=== PATIENT | male | born 1940 | race Caucasian/White ===

== ENCOUNTER 2019-01-23 15:54 | Observation (INO) | payer MEDICARE, BC ==
[~2019-01-23] VITALS: Ht 165.1 cm; Wt 63.4 kg
--- NOTE | ~2019-01-23 | HEMODYNAMI ---
PATIENT:MELLISSA URIARTE SR MEDICAL RECORD: [id number] : 36 LOCATION:[facility] D.2125 ADMISSION DATE: 01/23/19 Generatedon:01/24/201916:21 Patient name: MELLISSA URIARTE Patient #: [id number] SSN: : 1 10/28/1939 Date of study: 01/24/2019 Page: Of Hemodynamic Procedure Report Patient Data Patient Demographics Procedure consent was obtained First Name: MELLISSA Gender: Male Last Name: CHAPITO Suffix: [facility] Initial: CHRISTIE : 1940 Patient #: [id number] Age: 78 year(s) Race: Unknown Additional ID: [id number] Contact details Address: [address] [place] [address] State: [place] City: [facility] Zip code: [address] Past Medical History Allergies: No known allergies Admission Admission Data Admission Date: 01/23/2019 Admission Time: 18:59 Room #: D.2125 Height (in.): 64.96 BSA: 1.71 (m2) Height (cm.): 165 BMI: 23.69 (kg/m2) Weight (lbs.): 142.2 Weight (kg.): 64.5 Lab Results Lab Result Date: 01/24/2019 Lab Result Time: 0:00 Biochemistry Name Units Result Min Max BUN mg/dl 16 --(---*)-- 7 18 Creatinine mg/dl 1.1 --(--*-)-- 0.6 1.3 CBC Name Units Result Min Max Hemoglobin g/dl 15.8 --(--*-)-- 13.5 17.5 Procedure Procedure Types Cath Procedure Diagnostic Procedure C [facility] w/Coronaries Sedation Charges Moderate Sedation up to 15 minutes PCI Procedure Coronary Stent Coronary Stent Initial Procedure Description Procedure Date Procedure Date: 01/24/2019 Procedure Start Time: 15:49 Procedure End Time: 16:20 Procedure Staff Name Function Adarsh Lyle MD Performing Physician Cyndi Sen RT Monitor Delonte Lund RN Nurse Edwin Nunez RT Scrub Procedure Data Cath Procedure Fluoroscopy Diagnostic fluoroscopy Total fluoroscopy Time: time: 10.2 min 10.2 min Diagnostic fluoroscopy Total fluoroscopy dose: dose: 1004 mGy 1004 mGy Contrast Material Contrast Material Type Amount (ml) Isovue 300 147 Entry Location Entry Primary Successful Side Size Upsize Upsize Entry Closure Succes sful Closure Location (Fr) 1 (Fr) 2 (Fr) Remarks Device Remarks Femoral Right 5 Fr Exoseal artery Estimated blood loss: 10 ml Diagnostic catheters Device Type Used For End Catheter Placement MULTIPACK 3DRC 5Fr Procedure catheter MULTIPACK JL 4.0 5Fr Procedure catheter MULTIPACK Pigtail 5 Fr Procedure catheter DIAGNOSTIC JL 5 5Fr Procedure catheter ([id number]) Procedure Complications No complications Procedure Medications Medication Administration Route Dosage 0.9% NaCl I.V. 100 ml/hr Oxygen etCO2 Nasal cannula 2 l/min Heparin Flush Bag added to field 2 bags (1000units/500ml NS) Lidocaine 2% added to field 20 Cardizem 10 mg/hr (125mg/125ml NS) Benadryl I.V. 50 mg Versed I.V. 0.5 mg Fentanyl I.V. 25 mcg Heparin Bolus I.V. 5000 units Integrilin (Bolus I.V. 5.6 ml 2mg/ml) Integrilin (Bolus wasted 4.4 ml 2mg/ml) Versed I.V. 0.5 mg Plavix P.O. 600 mg Hemodynamics Rest BSA: 1.71 (m2) HGB: 15.8 (g/dl) O2 Consumption: Estimated: 196.67 (ml/min) O2 Co nsumption indexed: Estimated:115.01 (ml/min/m) Heart Rate: 72 (bpm) Pressure Samples Time Site Value (mmHg) Purpose Heart Use Rate(bpm) 15:59 LV 151/14,19 Snapshot 75 Gradients Valve Time Site Site Mean SEP/DFP Peak To Heart Use 1 2 (mmHg) (sec/min) Peak Rate (mmHg) (bpm) Aortic 16:00 LV AO 72 Snapshots Pre Cath Intra NCS Post Cath Vital Signs Time Heart Resp SPO2 etCO2 NIBP (mmHg) Rhythm Pain Sedation Rate (ipm) (%) (mmHg) Status Level (bpm) 15:36:29 80 20 95 17.2 143/74(112) A-Fib 0 (11) 10(A) , No pain 15:41:17 72 24 95 20.2 139/88(112) A-Fib 0 (11) 10(A) , No pain 15:45:32 73 22 94 14.9 140/74(119) A-Fib 0 (11) 10(A) , No pain 15:49:48 68 22 94 17.2 136/72(110) A-Fib 0 (11) 10(A) , No pain 15:54:02 69 22 95 18.7 137/72(107) A-Fib 0 (11) 10(A) , No pain 15:58:18 71 21 95 18.7 147/71(111) A-Fib 0 (11) 10(A) , No pain 16:02:40 67 23 96 18.7 138/61(109) A-Fib 0 (11) 10(A) , No pain 16:06:56 72 19 96 20.2 140/66(117) A-Fib 0 (11) 10(A) , No pain 16:11:12 79 19 95 22.4 139/67(101) A-Fib 0 (11) 10(A) , No pain 16:15:28 69 21 94 22.4 131/69(115) A-Fib 0 (11) 10(A) , No pain 16:19:38 80 20 95 21.7 145/77(116) A-Fib 0 (11) 10(A) , No pain Medications Time Medication Route Dose Verified Delivered Reason Notes Effectiveness by by 15:37:33 0.9% NaCl I.V. 100 Delonte Per physician ml/hr Ashely LEVI 15:37:43 Oxygen etCO2 Nasal 2 Delonte for low 02 sats cannula l/min Ashely LEVI 15:37:56 Heparin Flush added to 2 Delonte used for Bag field bags Ashely procedure (1000units/500ml RN NS) 15:38:10 Lidocaine 2% added to 20ml Delonte for local field vial Ashely anesthetic RN 15:38:57 Cardizem I.V. 10 Delonte Delonte for arrhythmia (125mg/125ml NS) drip(infusing mg/hr Ashely Lund upon arrival RN RN 15:40:14 Benadryl I.V. 50 mg Delonte Delonte Per physician Ashely Lund RN RN 15:51:56 Versed I.V. 0.5 Delonte Delonte for sedation mg Ashely Lund RN RN 15:52:05 Fentanyl I.V. 25 Delonte Delonte for sedation mcg Ashely Lund RN RN 16:08:02 Heparin Bolus I.V. 5000 Delonte Delonte for units Ashely Lund anticoagulation RN RN 16:08:16 Integrilin I.V. 5.6 Delonte Delonte for (Bolus 2mg/ml) ml Ashely Lund antiplatelet RN RN therapy 16:08:27 Integrilin wasted 4.4 Delonte Delonte to sharp's (Bolus 2mg/ml) ml Ashely Lund RN RN 16:09:44 Versed I.V. 0.5 Delonte Delonte for sedation mg Ashely Lund RN, RN 16:20:12 Plavix P.O. 600 Delonte Delonte for mg Ashely Lund antiplatelet RN RN therapy Procedure Log Time Note 14:53:55 Patient Weight : 142.2 lbs 14:54:06 Patient Height : 64.96 inches 14:54:47 Lab Result : Hemoglobin 15.8 g/dl 14:54:47 Lab Result : Creatinine 1.1 mg/dl 14:54:47 Lab Result : BUN 16 mg/dl 14:55:14 Diagnostic Cath status Elective 14:55:16 Delonte Lund RN sent for patient. Start room use. 14:55:17 Time tracking: Regular hours (M-F 7:00 - 5:00) 14:55:22 Plan of Care:Hemodynamics will remain stable., Cardiac rhythm will remain stable., Comfort level will be maintained., Respiratory function will remain adequate., Patient/ family verbilizes understanding of procedure., Procedure tolerated without complication., Recovers from procedure without complications.. 14:55:29 Patient received from Med II to CCL 2 Alert and oriented. Tansferred to table in Supine position. 14:55:30 Warm blankets applied, and jason hugger turned on for patient comfort. 14:55:31 Correct patient and procedure confirmed by team. 14:55:33 Signed procedure consent form obtained from patient. 14:55:48 H&P Date Dictated: 01/24/2019 Within 30 days and on chart., H&P Addendum completed by physician on day of procedure. (MUST COMPLETE FOR ALL OUTPATIENTS). 14:55:50 Pre-procedure instructions explained to patient. 15:33:04 Family in waiting room. 15:33:05 Patient NPO since Midnight. 15:33:12 Patient allergic to No known allergies 15:33:15 Is the patient allergic to Iodine/contrast media? No. 15:33:21 Was the patient premedicated? Yes 15:33:22 Is patient on blood thinner?Yes 15:33:28 ACC The patient was administered the following blood thiners within the last 24 hours: ACCPradaxa 15:33:30 Patient diabetic? No. 15:33:35 Snore? No 15:33:37 Sleep apnea? No 15:33:45 Dentures? Yes in tight 15:35:19 ECG and BP/O2 sat monitors applied to patient. 15:35:19 Vital chart was started 15:35:45 Baseline sample Acquired. 15:35:57 Rhythm: sinus rhythm 15:36:19 Full Disclosure recording started 15:36:24 Pre-op teaching completed and patient verbalized understanding. 15:37:33 0.9% NaCl 100 ml/hr I.V. was administered by Delonte Lund RN; Per physician; 15:37:43 Oxygen 2 l/min etCO2 Nasal cannula was administered by Delonte Lund RN; for low 02 sats; 15:37:56 Heparin Flush Bag (1000units/500ml NS) 2 bags added to field was administered by Delonte Lund RN; used for procedure; 15:38:07 Pre procedure: right dorsailis pedis pulse 1+ Palpable, but thready & weak; easily obliterated 15:38:10 Lidocaine 2% 20ml vial added to field was administered by Delonte Lund RN; for local anesthetic; 15:38:25 Patient pain scale 0/10 morphine givin on floor. 15:38:33 IV patent on arrival in right forearm with 0.9% NaCl at [facility]. 15:38:37 Lab results completed and on chart. 15:38:41 Right groin area was prepped with chlora-prep and draped in sterile fashion 15:38:42 Alarms reviewed by R. N. 15:38:43 Sharps counted by scrub and verified by R.N. 15:38:44 Physician [facility]:38[facility] 10 mg/hr I.V. drip(infusing upon arrival was administered by Delonte Lund RN; for arrhythmia; 15:40:14 Benadryl 50 mg I.V. was administered by Delonte Lund RN; Per physician; 15:40:57 Baseline sample Acquired. 15:41:05 Rhythm: atrial fibrillation 15:47:38 Use device set Femoral Dx 15:47:40 ACIST Syringe (97026) opened to sterile field. 15:47:40 Bag Decanter (2002S) opened to sterile field. 15:47:40 Medline Cath Pack ([id number]) opened to sterile field. 15:47:41 DIAGNOSTIC WIRE .035 260cm J wire (892452) opened to sterile field. 15:47:42 ACIST Hand Control (24428) opened to sterile field. 15:47:43 ACIST Manifold (84943) opened to sterile field. 15:47:44 DIAGNOSTIC Multipack 5Fr catheter set (HT5876) opened to sterile field. 15:47:45 Tegaderm 4 x 4 (1626W) opened to sterile field. 15:47:47 SHEATH 5FR [place] (YQI571) opened to sterile field. 15:47:57 --------ALL STOP TIME OUT------ 15:47:58 Final Timeout: patient, procedure, and site verified with staff and physician. All members of the team are in agreement. 15:48:00 Right groin site verified by team. 15:48:06 Fire Safety Assessment: A--An alcohol-based skin anteseptic being used preoperatively., C--Open oxygen or nitrous oxide is being used., D--An ESU, laser, or fiber-optic light is being used. 15:48:13 Sedation plan: IV Moderate Sedation Medication:Versed, Fentanyl 15:49:05 Procedure started. 15:49:14 Local anesthetic to right femoral artery with Lidocaine 2% by Adarsh Lyle MD.INITIAL ACCESS ONLY 15:49:23 A 5 Fr sheath was inserted into the Right Femoral artery 15:51:56 Versed 0.5 mg I.V. was administered by Delonte Lund RN; for sedation; 15:52:05 Fentanyl 25 mcg I.V. was administered by Delonte Lund RN; for sedation; 15:55:11 A MULTIPACK 3DRC 5Fr catheter was advanced over the wire and used for Procedure. 15:55:13 RCA angiography performed. 15:55:49 Catheter removed. 15:57:03 A MULTIPACK JL 4.0 5Fr catheter was advanced over the wire and used for Procedure. 15:59:54 Catheter removed. 16:00:02 A MULTIPACK Pigtail 5 Fr catheter was advanced over the wire and used for Procedure. 16:00:13 LV gram done using GUERRERO 16:00:19 EF : 55 % 16:00:24 Catheter removed. 16:01:40 A DIAGNOSTIC JL 5 5Fr catheter ([id number]) was advanced over the wire and used for Procedure. 16:03:05 LCA angiography performed. 16:03:08 Catheter removed. 16:04:51 WHISPER 300cm guide wire ([id number]) opened to sterile field. 16:04:52 INFLATOR Merit BasixCompak (RX8642) opened to sterile field. 16:04:53 SHEATH 6FR [place] (SDB954) opened to sterile field. 16:04:55 GUIDE 6FR AR 1.0 catheter ([id number]) opened to sterile field. 16:06:22 Proceeding to intervention. 16:06:47 6 Fr AR1 guide catheter was inserted over the wire 16:06:53 Whisper wire advanced. 16:08:02 Heparin Bolus 5000 units I.V. was administered by Delonte Lund RN; for anticoagulation; 16:08:16 Integrilin (Bolus 2mg/ml) 5.6 ml I.V. was administered by Delonte Lund RN; for antiplatelet therapy; 16:08:27 Integrilin (Bolus 2mg/ml) 4.4 ml wasted was administered by Delonte Lund RN; to sharp's; 16:09:22 Wire advanced across lesion. 16:09:44 Versed 0.5 mg I.V. was administered by Delonte Lund RN; for sedation; 16:09:56 Inflate balloon Inflation number: 1 A EMERGE OTW 3.0 x 15 balloon ([id number]) was prepped and advanced across the Mid RCA, then inflated to 10 JEFF for 0:10 (min:sec). 16:10:17 Inflation number: 2 The EMERGE OTW 3.0 x 15 balloon ([id number]) was reinflated across the Mid RCA, to 10 JEFF for 0:12 (min:sec). 16:10:52 Inflation number: 3 The EMERGE OTW 3.0 x 15 balloon ([id number]) was reinflated across the Mid RCA, to 10 JEFF for 0:23 (min:sec). 16:12:00 Inflation number: 4 The EMERGE OTW 3.0 x 15 balloon ([id number]) was reinflated across the Mid RCA, to 10 JEFF for 0:17 (min:sec). 16:12:42 Balloon removed over the wire. 16:16:28 Place stent Inflation Number: 1 A COBRA RX 3.5 X 24 Stent was prepped and advanced across the Mid RCA1. The stent was deployed at 14 JEFF for 0:24 (min:sec). 16:17:20 Sheath removed intact; hemostasis achieved with Exoseal to the Right Femoral artery. 16:17:33 EXOSEAL 6Fr (EX600) opened to sterile field. 16:17:48 Procedure ended.(Physican Out) 16:18:13 Fluoroscopy time 10.20 minutes. 16:18:19 Fluoroscopy dose: 1004 mGy 16:18:19 Flurop Dose total: 1004 16:18:52 Contrast amount:Isovue 300 147ml. 16:18:59 Sharps counted by scrub and verified by R.N. 16:19:02 Insertion/operative site no bleeding no hematoma. 16:19:10 Post-op/insertion site Right Femoral artery dressed using a 4 x 4 and Tegaderm. 16:19:13 Post Procedure Pulses reassessed and unchanged 16:19:18 Post-procedure physical assessment completed. ASA score P 2 - A patient with mild systemic disease as per Adarsh Lyle MD. 16:19:26 Post procedure rhythm: atrial fibrillation 16:19:30 Estimated blood loss: 10 ml 16:19:31 Post procedure instruction explained to patient.Patient verbalizes understanding. 16:19:54 Procedure type changed to Cath procedure, Diagnostic procedure, LHC, LHC w/Coronaries, Sedation Charges, Moderate Sedation up to 15 minutes, PCI procedure, Coronary Stent, Coronary Stent Initial 16:19:56 Procedure and supply charges have been captured, reviewed, submitted and are correct. 16:20:12 Plavix 600 mg P.O. was administered by Delonte Lund RN; for antiplatelet therapy; 16:20:17 Procedure Complication : No complications 16:20:36 Vital chart was stopped 16:20:37 See physician's report for complete and final results. 16:20:40 Report given to [facility]. 16:20:43 Patient transfered to [facility] with Bed. 16:20:45 Procedure ended. 16:20:45 Full Disclosure recording stopped 16:20:59 End room use (Document Last) Intervention Summary Intervention Notes Time ActionType Lesion and Equipment Action# Pressure Duration Attributes Used 16:09:56 Inflate Mid RCA EMERGE OTW 1 10 00:10 balloon 3.0 x 15 balloon ([id number]) 16:10:17 Reinflate Mid RCA EMERGE OTW 2 10 00:12 balloon 3.0 x 15 balloon ([id number]) 16:10:52 Reinflate Mid RCA EMERGE OTW 3 10 00:23 balloon 3.0 x 15 balloon ([id number]) 16:12:00 Reinflate Mid RCA EMERGE OTW 4 10 00:17 balloon 3.0 x 15 balloon ([id number]) 16:16:28 Place stent Mid RCA1 COBRA RX 3.5 1 14 00:24 X 24 Stent Device Usage Item Name Manufacture Quantity Catalog Number [facility] Lot# / Charge Number Stock Stock Serial# Code ACIST Syringe Acist 1 26426 888929 410162 043507 20 (89671) Medical Systems Inc Bag Decanter Microtek 1 2001S 446065 10808 260490 5 () Medical Inc. Medline Cath Medline 1 [id number] 292337 07714 806310 5 Pack ([id number]) DIAGNOSTIC St Misha 1 953740 955883 056984 106981 30 WIRE .035 260cm J wire (830164) ACIST Hand Acist 1 65365 838291 055773 460793 5 Control Medical (60095) Systems Inc ACIST Manifold Acist 1 51192 877883 512052 094935 5 (37235) Medical Systems Inc DIAGNOSTIC Cardinal 1 WI6258 476594 10499 969050 30 Multipack 5Fr Health catheter set (KR3269) Tegaderm 4 x 4 3M 1 1626W 049470 128693 256720 5 (1626W) SHEATH 5FR Terumo 1 PTH615 028936 960413 068786 5 [place] (MMS745) MULTIPACK 3DRC Cardinal 1 912822 5 5Fr catheter Health MULTIPACK JL Cardinal 1 590927 5 4.0 5Fr Health catheter MULTIPACK Cardinal 1 403639 5 Pigtail 5 Fr Health catheter DIAGNOSTIC JL Cardinal 1 [id number] 198882 679307 250941 5 5 5Fr catheter Health (184989E) WHISPER 300cm [place] 1 [id number] 465138 089739 825081 5 guide wire Vascular ([id number]) INFLATOR Merit Merit 1 ZA1156 068839 110443 940537 15 [employer] (ZJ5368) SHEATH 6FR Terumo 1 HNM398 748232 595661 125678 40 [place] (TDY892) GUIDE 6FR AR Medtronic 1 [id number] 312324 40504 688088 1 1.0 catheter (KR4FS81) EMERGE OTW 3.0 [employer] 1 [id number] 599061 128628 679055 5 11945210 x 15 balloon Scientific ([id number]) COBRA RX 3.5 X Celonova 1 150-99-01286 058899 544397734 989377 8 4 [id number] 24 stent Biosciences ([id number]) EXOSEAL 6Fr Cardinal 1 EX600 859137 419093 378556 10 (EX600) Health Signature Audit [place] Stage Time Signature Unsigned Intra-Procedure 01/24/2019 Cyndi Sen 4:21:18 PM RT(R) Signatures Monitor : Cyndi Sen Signature : RT Date : Time : [facility] [address] [address]
[2019-01-23] MEDS ORDERED: BP (16:02)
[2019-01-23] MEDS ORDERED: PRADAXA150 MG PO (16:02)
[2019-01-23 16:28] LABS: BASOPHILS 0.1 % (0-2); EOSINOPHILS 0 % (0-7); HEMATOCRIT 46.3 % (42.0-54.0); HEMOGLOBIN 15.8 g/dL (13.5-17.5); IMMATURE GRANULOCYTES 0.3 % (0-5); LYMPHOCYTES 5.2 % (15-50); MCH 31.9 pg (26.0-34.0); MCHC 34.1 g/dL (31.0-37.0); MCV 93.3 fL (80.0-100.0); MEAN PLATELET VOLUME 9.4 fL (7.4-10.4); MONOCYTES 12.3 % (2-11); NEUTROPHILS 82.1 % (40-80); PLATELET COUNT 349 10x3/uL (130-400); RBC 4.96 10x6/uL (4.20-6.10); RDW 12.8 % (11.5-14.5); WBC 17.4 10x3/uL (4.8-10.8)
[2019-01-23 16:34] LABS: APTT 52.4 SECONDS (22.8-39.4); INR 1.4 (0.85-1.17); PROTIME 16.6 SECONDS (11.6-15.0)
[2019-01-23 16:40] LABS: ALKALINE PHOSPHATASE 64 U/L (46-116); ALT (SGPT) 41 U/L (10-68); BILIRUBIN - TOTAL 2.68 mg/dL (0.2-1.3); CALC OSMOLALITY 271 mosm/kg (275-300); CALCIUM 9.3 mg/dL (8.5-10.1); CARBON DIOXIDE 24.7 mmol/L (21.0-32.0); CHLORIDE - SERUM 101 mmol/L (98-107); CREATININE - SERUM 1.1 mg/dL (0.6-1.3); GLUCOSE 116 mg/dL (74-106); POTASSIUM - SERUM 4.3 mmol/L (3.5-5.1); PROTEIN - SERUM 7.5 g/dL (6.4-8.2); SODIUM 135 mmol/L (136-145); UREA NITROGEN 16 mg/dL (7-18); eGFR NON AFRICAN AMERICAN 68 mL/min (90-120)
[2019-01-23 16:51] LABS: CKMB 1.7 U/L (0.0-3.6); CREATINE KINASE 65 UL (21-232); MAGNESIUM - SERUM 1.7 mg/dL (1.8-2.4); TROPONIN-I < 0.017 ng/mL (0.000-0.060)
[2019-01-23 17:28] VITALS: BP 145/81
[2019-01-23 18:26] VITALS: BP 154/78
[2019-01-23 18:45] VITALS: BP 146/74
[2019-01-23 19:26] LABS: CKMB 1.3 U/L (0.0-3.6); CREATINE KINASE 54 UL (21-232)
[2019-01-23 19:28] LABS: TROPONIN-I < 0.017 ng/mL (0.000-0.060)
--- NOTE | 2019-01-23 19:45 | NUR ---
NO ACUTE DISTRESS NOTED. V/S STABLE AT PRESENT. DENIES ANY NEEDS
[2019-01-23] MEDS ORDERED: LIPITOR10 MG PO (20:43)
[2019-01-23] MEDS ORDERED: LOPRESSOR25 MG PO (20:44)
--- NOTE | 2019-01-23 20:46 | NUR ---
PT ARRIVED TO ROOM 2124 PT IS AAO, 2L O2 NC. CARDIZEM INFUSING ORDERED TO RIGHT AC 20G PIV, PLACED TELEMETRY ON AND ALERTED FLY FRAME TENDER TO CARDIZEM GTT. PT MEDREC,PHARM AND HISTORY COMPLETE. 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 PT DENIES ANY NEEDS. NO S/S OF DISTRESS. BEDLOW AND CALL LIGHT IN REACH. PT WILL CALL FOR ASSIST WHEN NEEDED. WILL CPOC
--- NOTE | 2019-01-23 23:44 | NUR ---
PT VERBALIZED UNDERSTANDING, NPO AFTER MIDNIGHT FOR CARDIO CONSULT. PT HAS NO S/S OF DISTRESS. CARDIZEM INFUSING AT 10 ORDERED. CONTROLLED A FIB 80 PT WILL CALL FOR ASSIST WHEN NEEDED. WILL CPOC
[2019-01-23 23:48] VITALS: BP 125/71
[2019-01-23 23:53] VITALS: BP 143/72; BMI 24.0
--- NOTE | 2019-01-24 00:20 | NUR ---
PT ASLEEP, AROUSES TO NURSE IN ROOM. DRINK REMOVED FROM BEDSIDE. PT HAS NO S/S OF DISTRESS. DENIES ANY NEEDS. PT WILL CALL FOR ASSIST WHEN NEEDED. VERBALIZED UNDERSTANDING OF NPO UNTIL SEEN BY CARDIO. WILL CPOC
[2019-01-24 02:03] LABS: CKMB 0.8 U/L (0.0-3.6); CREATINE KINASE 38 UL (21-232); TROPONIN-I < 0.017 ng/mL (0.000-0.060)
[2019-01-24 05:20] VITALS: BP 108/58
--- NOTE | 2019-01-24 07:10 | NUR ---
REPORT RECIEVED FROM LICENSING WORKER AND PATIENT CARE ASSUMED. PATIENT LAYING IN BED AWAKE, ALERT AND ORIENTED X 4. DTR AT BEDSIDE. PATIENT IS STABLE AND VSS. PATIENT DENIES ANY NEEDS OR PAIN. WILL CONTINUE WITH PLAN OF CARE. SR UP X 2 BED IN LOW POSITION AND CALL LIGHT IN REACH.
[2019-01-24 07:29] LABS: HEMATOCRIT 41.2 % (42.0-54.0); HEMOGLOBIN 14.3 g/dL (13.5-17.5); MCH 31.9 pg (26.0-34.0); MCHC 34.7 g/dL (31.0-37.0); MEAN PLATELET VOLUME 9.3 fL (7.4-10.4); PLATELET COUNT 305 10x3/uL (130-400); RBC 4.48 10x6/uL (4.20-6.10); RDW 13.1 % (11.5-14.5)
[2019-01-24 07:32] LABS: WBC 9.5 10x3/uL (4.8-10.8)
[2019-01-24 08:00] VITALS: BP 120/51
[2019-01-24 08:03] LABS: ALBUMIN 3.2 g/dL (3.4-5.0); ALKALINE PHOSPHATASE 55 U/L (46-116); BILIRUBIN - TOTAL 3.97 mg/dL (0.2-1.3); CALC OSMOLALITY 276 mosm/kg (275-300); CALCIUM 8.6 mg/dL (8.5-10.1); CHLORIDE - SERUM 102 mmol/L (98-107); CKMB 0.3 U/L (0.0-3.6); CREATINE KINASE 30 UL (21-232); GLUCOSE 101 mg/dL (74-106); POTASSIUM - SERUM 4.1 mmol/L (3.5-5.1); PROTEIN - SERUM 6.4 g/dL (6.4-8.2); SODIUM 138 mmol/L (136-145); UREA NITROGEN 14 mg/dL (7-18); eGFR NON AFRICAN AMERICAN 76 mL/min (90-120)
[2019-01-24 08:07] LABS: ALT (SGPT) 23 U/L (10-68); TROPONIN-I < 0.017 ng/mL (0.000-0.060)
[2019-01-24 08:41] LABS: LYMPHOCYTES 20 % (15-50); MONOCYTES 23 % (2-11); NEUTROPHILS 55 % (40-80); PLATELET ESTIMATE NORMAL
[2019-01-24 08:42] LABS: ROULEAUX OCC
[2019-01-24 09:42] VITALS: Ht 165.1 cm; Wt 63.4 kg
[2019-01-24 12:38] VITALS: BP 109/44
--- NOTE | 2019-01-24 13:25 | NUR ---
PATIENT RESTING COMFORTABLY IN BED. DTR AT BEDSIDE. WILL CONTINUE TO MONITOR.
--- NOTE | 2019-01-24 15:00 | NUR ---
PATIENT IS STABLE AND VSS. PATIENT TO CREDIT OR LOANS OFFICER VIA HOSPITAL BED AND CREDIT OR LOANS OFFICER TEAM.DTRS IN ROOM.
[2019-01-24 16:30] VITALS: BP 168/75
--- NOTE | 2019-01-24 16:45 | NUR ---
PATIENT RETURNED FROM COPPING MACHINE OPERATOR VIA HOSPITAL BED AND COPPING MACHINE OPERATOR TEAM. PATIENT IS STABLE AND VSS.PATIENT FLAT ON BACK WITH CAREN LEGS STRAIGHT. DRSG TO RT GROIN C/D/I. NO BLEEDING, BRUISING, OR HEMATOMA NOTED. PATIENT IS SLEEPING BUT AROUSES TO VOICE EASILY. DTRS AT BEDSIDE. WILL CONTINUE TO MONITOR.
--- NOTE | 2019-01-24 19:10 | NUR ---
PT RESTING IN BED. AAO, DENIES ANY PAIN. RIGHT GROIN CDI. PULSES +2 NO HEMATOMA OR BLEEDING NOTED. PT URINATED 150ML OF URINE. SPILT A SMALL AMOUNT. CLEANED PT UP. PT HAS NO S/S OF DISTRESS. DENIES ANY NEEDS. PT WILL CALL FOR ASSIST WHEN NEEDED. NAME AND DATE PLACED ON BOARD. WILL CPOC
[2019-01-24 20:00] VITALS: BP 145/70
--- NOTE | 2019-01-24 22:59 | NUR ---
PT RESTING IN BED. 150 EMPTIED FROM URINAL. PT RIGHT GROIN CDI, NO HEMATOMA OR BLEEDING NOTED. PULSES +2 PT DENIES ANY NEEDS. NO S/S OF DISTRESS. PT WILL CALL FOR ASSIST WHEN NEEDED. WILL CPOC
[2019-01-25] VITALS: BP 147/68
--- NOTE | 2019-01-25 02:00 | NUR ---
PT ASLEEP. RESP EVEN AND UNLABORED. 2L O2 NC. NO S/S OF DISTRESS. BEDLOW AND CALL LIGHT IN REACH. WILL CPOC
[2019-01-25 04:00] VITALS: BP 105/73
--- NOTE | 2019-01-25 04:51 | NUR ---
PT ASLEEP. RESP EVEN AND UNLABORED. PT AROUSED TO VERBAL STIMULI. DENIES ANY NEEDS. NO S/S OF DISTRESS. RIGHT GROIN CDI. NO CHANGE. NS INFUSING ORDERED. CARDIZEM INFUSING ORDERED. WILL CPOC
[2019-01-25 07:13] LABS: BASOPHILS 0.1 % (0-2); EOSINOPHILS 0 % (0-7); HEMATOCRIT 41.9 % (42.0-54.0); HEMOGLOBIN 14.3 g/dL (13.5-17.5); IMMATURE GRANULOCYTES 0.3 % (0-5); LYMPHOCYTES 12.9 % (15-50); MCH 31.8 pg (26.0-34.0); MCHC 34.1 g/dL (31.0-37.0); MCV 93.3 fL (80.0-100.0); MEAN PLATELET VOLUME 9.6 fL (7.4-10.4); MONOCYTES 21.5 % (2-11); NEUTROPHILS 65.2 % (40-80); PLATELET COUNT 322 10x3/uL (130-400); RBC 4.49 10x6/uL (4.20-6.10); RDW 13.3 % (11.5-14.5); WBC 9.7 10x3/uL (4.8-10.8)
--- NOTE | 2019-01-25 07:32 | NUR ---
ASSESSMENT DONE. DENIES NEEDS.
[2019-01-25 07:36] VITALS: BP 108/66
[2019-01-25 07:41] LABS: CALC OSMOLALITY 277 mosm/kg (275-300); CALCIUM 8.6 mg/dL (8.5-10.1); CARBON DIOXIDE 22.3 mmol/L (21.0-32.0); CHLORIDE - SERUM 104 mmol/L (98-107); CREATININE - SERUM 0.8 mg/dL (0.6-1.3); GLUCOSE 91 mg/dL (74-106); MAGNESIUM - SERUM 1.9 mg/dL (1.8-2.4); SODIUM 139 mmol/L (136-145); UREA NITROGEN 12 mg/dL (7-18); eGFR NON AFRICAN AMERICAN > 90 mL/min (90-120)
[2019-01-25 08:03] LABS: POTASSIUM - SERUM 3.4 mmol/L (3.5-5.1)
--- NOTE | 2019-01-25 09:54 | NUR ---
I have reviewed this patient and I concur with the Shift Assessment completed by the Licensed Practical Nurse today this shift.
[2019-01-25 11:24] VITALS: BP 117/52
[2019-01-25 12:18] LABS: APPEARANCE CLEAR (CLEAR); BILIRUBIN NEGATIVE (NEGATIVE); COLOR DK YELLOW (YELLOW); GLUCOSE NEGATIVE (NEGATIVE); KETONE LARGE mg/dL (NEGATIVE); NITRITE NEGATIVE (NEGATIVE); PROTEIN NEGATIVE (NEGATIVE); SPECIFIC GRAVITY 1.015 (1.005-1.020); UROBILINOGEN NORMAL (NORMAL)
[2019-01-25 12:19] LABS: BACTERIA FEW /hpf (NONE SEEN); EPITHELIAL CELLS 0-5 /hpf (0-5); MUCUS <1+ /lpf (NONE SEEN); RED CELLS - URINE OCC /hpf (0-5); WHITE CELLS - URINE OCC /hpf (0-5)
[2019-01-25 15:39] VITALS: BP 137/53
[2019-01-25] MEDS ORDERED: PLAVIX75 MG PO (16:04)
--- NOTE | 2019-01-25 16:42 | NUR ---
DC GIVEN TO PT
--- NOTE | 2019-01-25 16:51 | NUR ---
DC HOME PER PERSONAL CAR
--- NOTE | 2019-01-28 09:23 | MORECARE ---
CASE MANAGEMENT DISCHARGE SUMMARY PATIENT: MELLISSA URIARTE UNIT: [id number] ADM DATE: 01/23/19 AGE: 78 : 36 SEX: M ROOM/BED: D.7961 AUTHOR: USHA RODRIGUEZ PHYSICIAN: REFERRING PHYSICIAN: MELLISSA ESCALONA MD DATE OF SERVICE: 01/28/19 Discharge Plan Patient Name: MELLISSA URIARTE [facility] 1940 Planned Disposition: Home Anticipated Discharge Date: 01/25/19 Discharge Date: 01/25/2019 Expected LOS: 2 Initial Reviewer: [email or web address] Initial Review Date: 01/28/2019 Generated: 01/28/19 10:23 am Patient Name: MELLISSA URIARTE Page [id number] at 0923 All edits/amendments must be made on the electronic document DICTATION DATE: 01/28/19921 HOUSE MOVER HELPER: MANOLO 01/28/19921 RPT#: [id number] DC DATE:01/25/19 STATUS: DIS IN [facility] [address] [place] [address] END OF REPORT
--- NOTE | 2019-01-28 10:06 | CN ---
PATIENT NAME:MELLISSA URIARTE MEDICAL RECORD: [id number] : 36 LOCATION:D. D.2125 ADMIT DATE: 01/23/19 ACCOUNT: [id number] CONSULTING PHYSICIAN: AIDEE COOMBS MD REFERRING PHYSICIAN: MELLISSA ESCALONA MD DATE OF CONSULTATION: 01/24/2019 HISTORY OF PRESENT ILLNESS: An 78-year-old gentleman with no known history of coronary artery disease, has a history of atrial fibrillation, chronic in nature on Coumadin and on Pradaxa for CVA prophylaxis has a history of hypertension and dyslipidemia, presented with chest tightness and pressure. Blood pressure was somewhat elevated at that time. Her rates were below 100, was irregular certainly suspicious for angina. We are asked to see him concerning his cardiovascular status. PAST MEDICAL HISTORY: Includes: 1. History of hypertension. 2. Dyslipidemia. 3. Atrial fibrillation. ALLERGIES: None known. MEDICATIONS: Include Pradaxa 150 mg b.i.d., atorvastatin 10 every day, metoprolol 25 every day. SOCIAL HISTORY: He is a nonsmoker and nondrinker. Easily takes care of all his ADLs, stays quite active, gardening, etc. REVIEW OF SYSTEMS: The patient reports easy bruising but reports no swollen glands. The patient reports no fever, no night sweats, no significant weight gain, no significant weight loss. No significant exercise tolerance. The patient reports no dry eyes, no irritation, no vision change. Patient reports no difficulty hearing and no ear pain. Patient reports no frequent nose bleeds or nose and sinus problems. Patient reports on arm pain on exertion. No shortness of breath while lying down. No history of heart murmur. Patient reports no cough, no wheezing or coughing up blood. Patient reports no abdominal pain, no vomiting. Normal appetite. No diarrhea and not vomiting blood. No nausea and no constipation. Patient reports no incontinence. No difficulty urinating. No hematuria. No increased frequency. Patient reports no muscle aches. No weakness, no arthralgias, no back pain. No swelling of the extremities. Patient reports no abnormal mole, no jaundice, no rashes. Reports no loss of consciousness. No weakness and no numbness. No seizures, dizziness, or headaches. The patient reports no depression, no sleep disturbance, feeling safe in a relationship and no alcohol abuse. Patient reports on fatigue. Reports no runny nose or sinus pressure. No itching, no hives, and no frequent sneezing. PHYSICAL EXAMINATION: GENERAL: Pleasant gentleman in no acute distress, appears younger than stated age. VITAL SIGNS: Blood pressure 108/58, pulse 67 and regular. HEENT: Normocephalic, atraumatic. NECK: No bruits are noted. HEART: Irregular, rate is controlled. There is a II/ systolic ejection murmur. CONSULT REPORT [id number] MELLISSA URIARTE SR LUNGS: Good air excursion. ABDOMEN: Soft, nontender. EXTREMITIES: Pulses 2+. No edema. NEUROLOGIC: Grossly intact. DIAGNOSTIC DATA: ECG shows some ST-T changes inferolaterally, questionable right related. IMPRESSION: We will plan for angiography, intervention based on above. TRANSINT:[id number] Voice Confirmation ID: [id number] DOCUMENT ID: [id number] AIDEE COOMBS MD at 1006 CC: [id number] DICTATION DATE: 01/24/19845 DELIVERY LEAD: 01/24/19 1212 DIS IN 01/25/19 [facility] [address] [facility] [place] [place] [address]
--- NOTE | 2019-01-28 10:07 | OP ---
PATIENT NAME: MELLISSA URIARTE SR MEDICAL RECORD: [id number] :36 LOCATION:D.M2 D.2125 ADMISSION DATE:01/23/19 SURGEON: AIDEE COOMBS MD DATE OF OPERATION: 01/24/2019 PROCEDURE: Left heart catheterization, selective coronary angiography, right femoral artery approach. CATHETERS: A 5-[place] sheath, 5/4 Ashley, 5/4 pig. The procedure was well tolerated. The patient was returned to the thomas. Sheath was removed. ExoSeal device was placed. FINDINGS: Left ventriculography in 30-degree GUERRERO view; normal wall motion and normal systolic function. CORONARY ANATOMY: LEFT MAIN: Left main is free of disease. LAD: Free of disease. CIRCUMFLEX: Luminal irregularities. No flow obstructive disease. RIGHT CORONARY ARTERY: The culprit artery with a severe diffuse stenosis 90% at its worst portion. DESCRIPTION OF PROCEDURE: A 5-[place] sheath was exchanged for a 6-[place] sheath. AR guiding catheter provided excellent guide catheter support followed by a 300 cm Whisper wire. Pre-deployment balloon was a 3.0 x 15 mm [place], stent deployed was a 3.5 x 24 mm Cobra stent up to 14 atmospheres. Final angiography shows excellent resolution of 90% plus stenosis, no significant residual. MARCELLUS flow was 3 throughout the procedure. Sheath was closed with ExoSeal device. Plavix was loaded in the lab. TRANSINT:[id number] Voice Confirmation ID: [id number] DOCUMENT ID: [id number] AIDEE COOMBS MD at 1007 CC: [id number] DICTATION DATE: 01/24/19 1620 HEALTH EDUCATION AIDE: 01/24/19 1831 DIS IN 01/25/19 [facility] [address] [place] [place] [address]
== END 2019-01-25 16:52 | disposition home or self-care (01) ==
LOC: D.ER 15:54 → D.M2 18:59 → OBSVTIME 18:59 → D.M2 01-25 16:52
PROVIDERS: Family Medicine; ADMIT Emergency Medicine; ATTEND Emergency Medicine
DX: I25.119 Atherosclerotic heart disease of native coronary artery with unspecified angina pectoris (principal); I48.91 Unspecified atrial fibrillation; I10 Essential (primary) hypertension; E78.5 Hyperlipidemia, unspecified

== ENCOUNTER 2019-03-14 10:40 | Inpatient (IN) | payer MEDICARE, BC ==
[~2019-03-14] VITALS: Ht 165.1 cm; Wt 56.8 kg
[2019-03-14] VITALS (7 sets, daily range): BP systolic 101–158; BP diastolic 61–90; Ht 165.1 cm; Wt 56.8 kg
[~2019-03-14 10:40] MED LIST: BP; LIPITOR10 MG PO; LOPRESSOR25 MG PO; PLAVIX75 MG PO; PRADAXA150 MG PO
[2019-03-14 11:11] LABS: HEMATOCRIT 44.3 % (42.0-54.0); HEMOGLOBIN 15.5 g/dL (13.5-17.5); MCH 31.6 pg (26.0-34.0); MCV 90.4 fL (80.0-100.0); MEAN PLATELET VOLUME 9.4 fL (7.4-10.4); RDW 13.2 % (11.5-14.5); WBC 6.9 10x3/uL (4.8-10.8)
[2019-03-14 11:13] LABS: PLATELET COUNT 210 10x3/uL (130-400)
[2019-03-14 11:24] LABS: INR 1.25 (0.85-1.17); PROTIME 15.2 SECONDS (11.6-15.0)
[2019-03-14 11:25] LABS: ALBUMIN 3.4 g/dL (3.4-5.0); ALKALINE PHOSPHATASE 59 U/L (46-116); ALT (SGPT) 23 U/L (10-68); APTT 49.6 SECONDS (22.8-39.4); BILIRUBIN - TOTAL 2.54 mg/dL (0.2-1.3); CALC OSMOLALITY 271 mosm/kg (275-300); CALCIUM 9.2 mg/dL (8.5-10.1); CARBON DIOXIDE 24.2 mmol/L (21.0-32.0); CHLORIDE - SERUM 101 mmol/L (98-107); POTASSIUM - SERUM 3.9 mmol/L (3.5-5.1); PROTEIN - SERUM 6.8 g/dL (6.4-8.2); SODIUM 134 mmol/L (136-145); UREA NITROGEN 16 mg/dL (7-18); eGFR NON AFRICAN AMERICAN 76 mL/min (90-120)
[2019-03-14 11:26] LABS: GLUCOSE 149 mg/dL (74-106)
[2019-03-14 11:35] LABS: BASOPHILS 1 % (0-2); CKMB 0.8 U/L (0.0-3.6); CREATINE KINASE 47 UL (21-232); LYMPHOCYTES 17 % (15-50); MAGNESIUM - SERUM 1.8 mg/dL (1.8-2.4); MONOCYTES 16 % (2-11); NEUTROPHILS 61 % (40-80); PLATELET ESTIMATE NORMAL; TROPONIN-I < 0.017 ng/mL (0.000-0.060)
--- NOTE | 2019-03-14 14:30 | NUR ---
RECEIVED PT TO ROOM 2121 VIA W/C FROM ER AAOX4 RESP UNLABORED COLOSTOMY INTACT SKIN W/D COLOR WNL WILL CONTINUE TO MONITOR
--- NOTE | 2019-03-14 19:27 | NUR ---
AWAKE AND ALERT DENIES TINGLING AND CP SKIN IS WARM AND DRY IV TO LEFT AC PATENT I BEGIN BACKUP FLUID TO THE CARDZIEM AT THIS TIME BED IS LOW AND LOCKED AND SRX2 CALL LIGHT IS IN REACH
[2019-03-15] VITALS: BP 116/60
--- NOTE | 2019-03-15 01:44 | NUR ---
I have reviewed this patient and I concur with the Shift Assessment completed by the Licensed Practical Nurse today this shift.
[2019-03-15 04:00] VITALS: BP 122/66
[2019-03-15 05:42] LABS: BASOPHILS 0.3 % (0-2); EOSINOPHILS 0 % (0-7); HEMATOCRIT 40.9 % (42.0-54.0); IMMATURE GRANULOCYTES 0.3 % (0-5); LYMPHOCYTES 15.7 % (15-50); MCH 31.5 pg (26.0-34.0); MCHC 34.2 g/dL (31.0-37.0); MCV 91.9 fL (80.0-100.0); MEAN PLATELET VOLUME 9.5 fL (7.4-10.4); MONOCYTES 22.5 % (2-11); NEUTROPHILS 61.2 % (40-80); PLATELET COUNT 207 10x3/uL (130-400); RBC 4.45 10x6/uL (4.20-6.10); RDW 13.4 % (11.5-14.5)
[2019-03-15 05:46] LABS: WBC 9.2 10x3/uL (4.8-10.8)
[2019-03-15 06:11] LABS: ALKALINE PHOSPHATASE 50 U/L (46-116); ALT (SGPT) 22 U/L (10-68); CALC OSMOLALITY 267 mosm/kg (275-300); CALCIUM 8.8 mg/dL (8.5-10.1); CARBON DIOXIDE 25.4 mmol/L (21.0-32.0); CHLORIDE - SERUM 99 mmol/L (98-107); GLUCOSE 108 mg/dL (74-106); POTASSIUM - SERUM 4.3 mmol/L (3.5-5.1); SODIUM 133 mmol/L (136-145); UREA NITROGEN 16 mg/dL (7-18); eGFR NON AFRICAN AMERICAN 76 mL/min (90-120)
[2019-03-15 06:12] LABS: ALBUMIN 3.1 g/dL (3.4-5.0); BILIRUBIN - TOTAL 2.17 mg/dL (0.2-1.3); PROTEIN - SERUM 6.2 g/dL (6.4-8.2)
--- NOTE | 2019-03-15 07:33 | NUR ---
REPORT RECEIVED. WILL CONTINUE WITH POC. PT CURRENTLY LYING SEMI FOWLERS. CALL LIGHT W/I REACH. PT IS AAO AND UP AD [place]. RR EVEN AND UNLABORED ON RA. CARDIZEM RATE DECREASED TO 5ML/HR BY MIRACLE LEVICASTINGS TRIMMER NURSE R/T RATE BEING AT 55 CONTROLLED A-FIB. WILL NOTIFY CARDIOLOGY. NO S/S OF DISTRESS NOTED. PT DENIES ANY NEEDS AT THIS TIME. WILL CTM.
[2019-03-15 07:52] VITALS: BP 120/63
--- NOTE | 2019-03-15 09:16 | NUR ---
RECEIVED VERBAL ORDERS TO STOP SOTOLOL AND ADMINISTER 50MG METOPROLOL WAIT TWO HOURS AND STOP THE CARDIZEM DRIP. ORDERS PLACED. WILL CTM.
--- NOTE | 2019-03-15 11:25 | NUR ---
AAYUSH PÉREZIP STOPPED PER DR.ST MALLOY VERBAL ORDERS. WILL CTM.
[2019-03-15 12:01] VITALS: BP 120/61
[2019-03-15 13:23] LABS: APPEARANCE CLEAR (CLEAR); COLOR YELLOW (YELLOW); SPECIFIC GRAVITY 1.015 (1.005-1.020)
[2019-03-15 13:24] LABS: BACTERIA FEW /hpf (NONE SEEN); BILIRUBIN NEGATIVE (NEGATIVE); EPITHELIAL CELLS 0-5 /hpf (0-5); GLUCOSE NEGATIVE (NEGATIVE); KETONE SMALL mg/dL (NEGATIVE); NITRITE NEGATIVE (NEGATIVE); PROTEIN TRACE mg/dL (NEGATIVE); RED CELLS - URINE RARE /hpf (0-5); UROBILINOGEN NORMAL (NORMAL); WHITE CELLS - URINE OCC /hpf (0-5)
--- NOTE | 2019-03-15 14:33 | CN ---
PATIENT NAME:MELLISSA URIARTE MEDICAL RECORD: [id number] : 36 LOCATION:D. D.2122 ADMIT DATE: 03/14/19 ACCOUNT: [id number] CONSULTING PHYSICIAN: AIDEE COOMBS MD REFERRING PHYSICIAN: NEERAJ MORIN MD DATE OF CONSULTATION: 03/14/2019 HISTORY OF PRESENT ILLNESS: An 78-year-old gentleman with known history of coronary artery disease, history of atrial fibrillation on NOAC for DVT prophylaxis, admitted with AFib RVR. No recent illness has been overdoing it here lately with breast cyst, tiredness, fatigue. We are concern on his cardiovascular status. PAST MEDICAL HISTORY: 1. History of atrial fibrillation. 2. Coronary artery disease. 3. Hypertension. 4. Hyperlipidemia. ALLERGIES: None known. MEDICATIONS: Include Pradaxa 150 mg b.i.d., Lipitor 10 every day, metoprolol 25 b.i.d., and aspirin 81 every day. SOCIAL HISTORY: , nonsmoker. He takes care of his ADLs, does try to exercise on a regular basis. REVIEW OF SYSTEMS: REVIEW OF SYSTEMS: The patient reports easy bruising but reports no swollen glands. The patient reports no fever, no night sweats, no significant weight gain, no significant weight loss. No significant exercise tolerance. The patient reports no dry eyes, no irritation, no vision change. Patient reports no difficulty hearing and no ear pain. Patient reports no frequent nose bleeds or nose and sinus problems. Patient reports on arm pain on exertion. No shortness of breath while lying down. No history of heart murmur. Patient reports no cough, no wheezing or coughing up blood. Patient reports no abdominal pain, no vomiting. Normal appetite. No diarrhea and not vomiting blood. No nausea and no constipation. Patient reports no incontinence. No difficulty urinating. No hematuria. No increased frequency. Patient reports no muscle aches. No weakness, no arthralgias, no back pain. No swelling of the extremities. Patient reports no abnormal mole, no jaundice, no rashes. Reports no loss of consciousness. No weakness and no numbness. No seizures, dizziness, or headaches. The patient reports no depression, no sleep disturbance, feeling safe in a relationship and no alcohol abuse. Patient reports on fatigue. Reports no runny nose or sinus pressure. No itching, no hives, and no frequent sneezing. PHYSICAL EXAMINATION: GENERAL: Pleasant gentleman in no acute distress, appears younger than stated age. VITAL SIGNS: Blood pressure 147/68, pulse 84 and regular. HEENT: Normocephalic, atraumatic. NECK: No bruits are noted. HEART: Irregular, rate is controlled, 2/6 systolic ejection murmur. LUNGS: Good air excursion. ABDOMEN: Soft, nontender. CONSULT REPORT [id number] MELLISSA URIARTE SR EXTREMITIES: Pulses 2+. No edema. NEUROLOGIC: Grossly intact. IMPRESSION: AFib, RVR. No ischemic symptomology. This may have been simply due to physical over exertion, should be able to switch Cardizem to p.o. fairly easily. Continue NOAC for anticoagulation. TRANSINT:[id number] Voice Confirmation ID: [id number] DOCUMENT ID: [id number] AIDEE COOMBS MD at 1433 CC: [id number] DICTATION DATE: 03/14/19 183 TRUCK CATERER: 03/15/19 0011 ADM IN [facility] [address] [place] [address]
--- NOTE | 2019-03-15 15:27 | NUR ---
PT CURRENTLY RESTING. RR EVEN AND UNLABORED ON RA. L.AC PIV IS SALINE LOCKED. PT IS IN CONTROL A-FIB IN THE 60S. PT DENIES ANY NEEDS. WILL CTM. NO S/S OF DISTRESS NOTED.
[2019-03-15 15:38] VITALS: BP 126/74
[2019-03-15 15:59] LABS: MONO NEGATIVE (NEGATIVE)
[2019-03-15 20:00] VITALS: BP 138/77
--- NOTE | 2019-03-15 20:00 | NUR ---
INITIAL ROUNDS AND ASSESSMENT COMPLETED. PT RESTING WITH NO DISTRESS. RESPS EVEN/NONLABORED. SEE ASSESSMENT. CALL LIGHT IN REACH. CPOC.
--- NOTE | 2019-03-15 21:21 | NUR ---
BEDTIME MEDS GIVEN.
[2019-03-16] VITALS: BP 145/74
[2019-03-16 04:00] VITALS: BP 142/91
--- NOTE | 2019-03-16 04:34 | NUR ---
LAB COLLECTED PER VENIPUNCTURE/LEATHER CARTRIDGE BELT MAKER. NO DISTRESS. RESTING WITH NO NEEDS VOICED. CPOC.
[2019-03-16 05:03] LABS: CALC OSMOLALITY 273 mosm/kg (275-300); CALCIUM 8.4 mg/dL (8.5-10.1); CARBON DIOXIDE 27.5 mmol/L (21.0-32.0); CHLORIDE - SERUM 102 mmol/L (98-107); GLUCOSE 89 mg/dL (74-106); POTASSIUM - SERUM 3.8 mmol/L (3.5-5.1); SODIUM 137 mmol/L (136-145); UREA NITROGEN 14 mg/dL (7-18); eGFR NON AFRICAN AMERICAN 76 mL/min (90-120)
[2019-03-16 05:06] LABS: BASOPHILS 0.2 % (0-2); EOSINOPHILS 0.4 % (0-7); HEMATOCRIT 40.7 % (42.0-54.0); HEMOGLOBIN 14.1 g/dL (13.5-17.5); IMMATURE GRANULOCYTES 0.4 % (0-5); LYMPHOCYTES 15.5 % (15-50); MCH 31.8 pg (26.0-34.0); MCHC 34.6 g/dL (31.0-37.0); MCV 91.7 fL (80.0-100.0); MEAN PLATELET VOLUME 9.7 fL (7.4-10.4); MONOCYTES 18.1 % (2-11); NEUTROPHILS 65.4 % (40-80); PLATELET COUNT 206 10x3/uL (130-400); RBC 4.44 10x6/uL (4.20-6.10); RDW 13.1 % (11.5-14.5); WBC 8.5 10x3/uL (4.8-10.8)
--- NOTE | 2019-03-16 07:24 | NUR ---
REPORT RECIEVED AND ROUNDING COMPLETE. PATIENT LAYING IN BED IN SUPINE POSITION. PATIENT HAS EYES CLOSED. PATIENT'S BREATHING IS EVEN AND UNLABORED. PATIENT HAS A LEFT AC PIC THAT IS SALINE LOCKED, DRESSING C/D/I AND NO S/SX OF INFECTION. PATIENT IS SHOWING NO S/SX OF DISTRESS AT THIS TIME CALL LIGHT WITHIN REACH AND BED IN LOWEST POSITION.
[2019-03-16 09:33] VITALS: BP 138/98
--- NOTE | 2019-03-16 10:53 | NUR ---
I have reviewed this patient and I concur with the Shift Assessment completed by the Licensed Practical Nurse today this shift.
[2019-03-16 11:07] LABS: EBV - EARLY ANTIGEN AB IGG <9.0 U/mL (0.0-8.9); EBV - NUCLEAR ANTIGEN AB IGG >600.0 U/mL (0.0-17.9); EBV VIRAL CAPSID AB IGM <36.0 U/mL (0.0-35.9)
[2019-03-16] MEDS ORDERED: METOPROLOL TART50 MG PO (11:13)
[2019-03-16] MEDS ORDERED: PROTONIX40 MG PO (11:13)
[2019-03-16] MEDS ORDERED: CARDIZEM CD180 MG PO (11:39)
--- NOTE | 2019-03-16 11:48 | NUR ---
RX FOR CARDIZEM 180 MG DAILY #30 WITH ONE REFILL ISSUED PER DR COOMBS. [facility] SPOKE TO ADI, PHARMACIST.
--- NOTE | 2019-03-16 12:45 | NUR ---
REVIEWED PATIENT'S DISCHARGE INSTRUCTIONS WITH PATIENT AND PATIENT STATED HE UNDERSTOOD AND SIGNED PAPERWORK. REMOVED PATIENT'S PIV FROM LEFT AC. NO BLEEDING NOTED AND CATH INTACT. ASSISTED PATIENT DOWN TO FRONT DOOR VIA WHEELCHAIR. NO OTHER NEEDS AT THIS TIME.
--- NOTE | 2019-03-17 10:48 | EC ---
PATIENT:MELLISSA URIARTE SR DATE OF SERVICE: 03/14/19 SEX: M MEDICAL RECORD: [id number] DATE OF : 36 LOCATION:D.M2 D.212 AGE OF PATIENT: 78 ADMISSION DATE: 03/14/19 REFERRING PHYSICIAN: INTERPRETING PHYSICIAN: AIDEE COOMBS MD ECHOCARDIOGRAM REPORT ECHO CHARGES 4 ECHO COMPLETE Date: 03/15/19 CLINICAL DIAGNOSIS: LVF ECHOCARDIOGRAPHIC MEASUREMENTS (adult normal given) AC root (d.<3.7cm) 2.9 cm LV Septum d (<1.2 cm> 0.7 cm Valve Excursion 0.9 cm LV Septum (systole) 1.0 cm Left Atria (s.<4.0cm> 2.4 cm LVPW d(<1.2cm) 0.7 cm RV (d.<2.3cm) 3.1 cm LVPW (sytole) 1.2 cm LV diastole(<5.6CM) 4.6 cm MV E-F(>70mm/sec) cm LV systole 3.1 cm LVOT Diameter 1.7 cm MV exc.(>10mm) cm Est.ejection fraction (50-75%) % DOPPLER: LVIT cm/sec A 22 cm/sec E 92 cm/sec LA cm/sec RVSP 37.3 mmHg LVOT 58 cm/sec AOP1/2T m/s Asc. Ao 139 cm/sec RVOT 41 cm/sec RA cm/sec PA 100 cm/sec AV Gradient Peak 7.7 mmHg AV Mean 4.2 mmHg AV Area 0.9 cm MV Gradient Peak 7.7 mmHg MV Mean 2.7 mmHg MV Area cm COMMENTS: Biochemistry Specialist: Omero STAUFFER Supervisor Of Officials: 3 Dr. Sandoval TAPE# PACS Pericardial Effusion N DATE OF SERVICE: Adequate 2-D, color-flow and spectral Doppler, and M-mode. No LVH. LV internal dimensions normal. Wall motion is normal. EF is greater than or equal to 55%. Aortic valve is tricuspid. No evidence of stenosis by Doppler interrogation. Left atrium is normal. Mitral valve shows no prolapse. Trace MR. Right-sided chambers are grossly normal. Trace TR. TRANSINT:[id number] Voice Confirmation ID: [id number] DOCUMENT ID: [id number] ECHOCARDIOGRAM REPORT [id number] MELLISSA URIARTE AIDEE ANN MD at 1048 CC: [id number] DICTATION DATE: 03/16/19 1028 PRIVATE BRANCH EXCHANGE INSTALLER: 03/16/19 1302 DIS IN 03/16/19 [place] [id number] [place] [id number]
--- NOTE | 2019-03-18 08:43 | MORECARE ---
CASE MANAGEMENT DISCHARGE SUMMARY PATIENT: MELLISSA URIARTE UNIT: [id number] ADM DATE: 03/14/19 AGE: 78 : 38 SEX: M ROOM/BED: D.2121 AUTHOR: USHA RODRIGUEZ PHYSICIAN: REFERRING PHYSICIAN: NEERAJ MORIN MD DATE OF SERVICE: 03/18/19 Discharge Plan Patient Name: MELLISSA URIARTE [facility] [facility] 1940 Planned Disposition: Home Anticipated Discharge Date: 03/16/19 Discharge Date: 03/16/2019 Expected LOS: 2 Initial Reviewer: [email or web address] Initial Review Date: 03/18/2019 Generated: 03/18/19 9:43 am Patient Name: MELLISSA URIARTE Page [id number] at 0843 All edits/amendments must be made on the electronic document DICTATION DATE: 03/18/19841 COLD MOLDING PRESS OPERATOR: MANOLO 03/18/1944 RPT#: [id number] DC DATE:03/16/19 STATUS: DIS IN [facility] [address] [facility] [place] [address] END OF REPORT
== END 2019-03-16 12:47 | disposition home or self-care (01) | DRG 309 ==
LOC: D.ER 10:40 → D.M2 13:25
PROVIDERS: Family Medicine; ADMIT Internal Medicine Nephrology; ATTEND Internal Medicine Nephrology
DX: I48.91 Unspecified atrial fibrillation (principal); E87.1 Hypo-osmolality and hyponatremia; D68.9 Coagulation defect, unspecified; I10 Essential (primary) hypertension; E78.5 Hyperlipidemia, unspecified; I25.10 Atherosclerotic heart disease of native coronary artery without angina pectoris; R50.9 Fever, unspecified

== ENCOUNTER 2019-03-29 18:55 | Emergency (ER) | payer MEDICARE, BC ==
[~2019-03-29] VITALS: Ht 165.1 cm; Wt 60.0 kg
[~2019-03-29 18:55] MED LIST changes: +CARDIZEM CD180 MG PO; +METOPROLOL TART50 MG PO; +PROTONIX40 MG PO
[2019-03-29 19:00] VITALS: Ht 165.1 cm; Wt 60.0 kg
[2019-03-29 19:46] LABS: BASOPHILS 0.2 % (0-2); EOSINOPHILS 0.9 % (0-7); HEMATOCRIT 40.9 % (42.0-54.0); HEMOGLOBIN 14.2 g/dL (13.5-17.5); IMMATURE GRANULOCYTES 0.4 % (0-5); LYMPHOCYTES 17.5 % (15-50); MCH 31.4 pg (26.0-34.0); MCHC 34.7 g/dL (31.0-37.0); MCV 90.5 fL (80.0-100.0); MEAN PLATELET VOLUME 8.8 fL (7.4-10.4); MONOCYTES 11.2 % (2-11); NEUTROPHILS 69.8 % (40-80); PLATELET COUNT 462 10x3/uL (130-400); RBC 4.52 10x6/uL (4.20-6.10); RDW 12.9 % (11.5-14.5); WBC 8.5 10x3/uL (4.8-10.8)
[2019-03-29 19:54] LABS: INR 1.35 (0.85-1.17); PROTIME 16.2 SECONDS (11.6-15.0)
[2019-03-29 19:55] LABS: APTT 53.3 SECONDS (22.8-39.4)
[2019-03-29 20:08] LABS: ALBUMIN 3.2 g/dL (3.4-5.0); ALKALINE PHOSPHATASE 66 U/L (46-116); ALT (SGPT) 16 U/L (10-68); BILIRUBIN - TOTAL 0.92 mg/dL (0.2-1.3); CALC OSMOLALITY 268 mosm/kg (275-300); CALCIUM 9.1 mg/dL (8.5-10.1); CARBON DIOXIDE 22.9 mmol/L (21.0-32.0); CHLORIDE - SERUM 100 mmol/L (98-107); CREATININE - SERUM 0.9 mg/dL (0.6-1.3); GLUCOSE 92 mg/dL (74-106); POTASSIUM - SERUM 3.9 mmol/L (3.5-5.1); SODIUM 135 mmol/L (136-145); UREA NITROGEN 11 mg/dL (7-18); eGFR NON AFRICAN AMERICAN 86 mL/min (90-120)
[2019-03-29] MEDS ORDERED: BETAPACE 80 MG80 MG PO (22:05)
[2019-03-29 22:13] VITALS: BP 144/71
== END 2019-03-29 22:27 | disposition home or self-care (01) ==
LOC: D.ER 18:55
PROVIDERS: Family Medicine
DX: R55 Syncope and collapse (principal); T14.8XXA Other injury of unspecified body region, initial encounter; W18.30XA Fall on same level, unspecified, initial encounter; S00.91XA Abrasion of unspecified part of head, initial encounter; I10 Essential (primary) hypertension; I48.91 Unspecified atrial fibrillation; S41.112A Laceration without foreign body of left upper arm, initial encounter